=== PATIENT | male | born 1990 | race Caucasian/White ===

== ENCOUNTER 2017-02-15 08:42 | Inpatient (IN) | payer OTHER ==
[2017-02-15 09:06] VITALS: BMI 30.1
--- NOTE | 2017-02-15 11:12 | HP ---
COWS - Scale Resting Pulse: 0= [place] 80 or Below Sweatin= Chills/Flushing Restless Observation: 3= Extraneous Movement Pupil Size: 2= Moderately Dilated Bone or Joint Aches: 4=Acute Joint/Muscle Pain Runny Nose/ Eye Tearin= Nasal Congestion GI Upset > 30mins: 1= Stomach Cramp Tremor Observation: 1= Tremor [place], Not Seen Yawning Observation: 2= >3x During Session Anxiety or Irritability: 2=Irritable/Anxious Goose Flesh Skin: 0=Smooth Skin COWS Score: 17 Admission ROS S - HPI Chief Complaint: DETOX TX FOR HEROIN DEPENDENCE Allergies/Adverse Reactions: Allergies Allergy/AdvReac Type Severity Reaction Status Date / Time morphine Allergy Severe Swelling Verified 02/15/17 09:38 History of Present Illness: 26 Y/O MALE WITH A HX OF HEROIN DEPENDENCE SEEKING DETOX [place]. Exam Limitations: No Limitations - Ebola screening Have you traveled outside of the country in the last 21 days: No Have you had contact with anyone from an Ebola affected area: No Have you been sick,other than usual withdrawal symptoms: No Do you have a fever: No - Review of Systems Constitutional: No Symptoms Reported, Chills, Night Sweats, Changes in sleep ( TAKES AMBIEN) EENT: reports: Tearing, Nose Congestion, Dental Problems (WISDOM TOOTH EXTRACTION) Respiratory: reports: No Symptoms reported Cardiac: reports: Lightheadedness GI: reports: Constipated, Nausea, Poor Appetite, Vomiting, Abdominal cramping : reports: Dysuria Musculoskeletal: reports: Back Pain (HX KYPHOSIS), Muscle Pain Integumentary: reports: Bruising (MID-RIGHT PALM FROM WORK) Neuro: reports: Headache (HX MIGRAINES), Tremors, Unsteady Gait, Dizziness Endocrine: reports: No Symptoms Reported Hematology: reports: No Symptoms Reported Psychiatric: reports: Orientated x3, Anxious Other Systems: Reviewed and Negative Patient History - Patient Medical History Hx Anemia: No Hx Asthma: No Hx Chronic Obstructive Pulmonary Disease (COPD): No Hx Cancer: No Hx Cardiac Disorders: No Hx Congestive Heart Failure: No Hx Hypertension: Yes (WAS ON MED BUT RESOVLED; BP 156/97) Hx Hypercholesterolemia: No Hx Pacemaker: No HX Cerebrovascular Accident: No Hx Seizures: No Hx Dementia: No Hx Diabetes: No Hx Gastrointestinal Disorders: No Hx Liver Disease: No Hx Genitourinary Disorders: No Hx Sexually Transmitted Disorders: No Hx Renal Disease (ESRD): No Hx Thyroid Disease: No Hx Human Immunodeficiency Virus (HIV): No (NEGATIVE HX) Hx Hepatitis C: No Hx Depression: Yes (ON MED) Hx Suicide Attempt: No Hx Bipolar Disorder: No Hx Schizophrenia: No - Patient Surgical History Past Surgical History: Yes Hx Neurologic Surgery: Yes (craniotomy in 12/2011) Hx Cataract Extraction: No Hx Cardiac Surgery: No Hx Lung Surgery: No Hx Breast Surgery: No Hx Breast Biopsy: No Hx Abdominal Surgery: No Hx Appendectomy: No Hx Cholecystectomy: No Hx Genitourinary Surgery: No Hx Orthopedic Surgery: Yes (craineotomy 12/2011 metal plate placed) Anesthesia Reaction: No - PPD History Previous Implant?: Yes Documented Results: Negative w/proof Implanted On Prior [facility] Admission?: Yes Date: 03/15/16 Results: 0 PPD to be Administered?: Yes - Reproductive History Patient is a Female of Child Bearing Age (11 -55 yrs old): No (MALE) - Smoking Cessation Smoking history: Current every day smoker Have you smoked in the past 12 months: Yes Aproximately how many cigarettes per day: 20 Hx Chewing Tobacco Use: No Initiated information on smoking cessation: Yes 'Breaking Loose' booklet given: 02/15/17 - Substance & Tx. History Hx Alcohol Use: No (DENIES) Hx Substance Use: Yes (HEROIN) Substance Use Type: Heroin Hx Substance Use Treatment: Yes ([facility]-DETOX) - Substances Abused Heroin Route: Inhalation Frequency: Daily Amount used: 6-7 BAGS Age of first use: 24 Date of Last Use: 02/14/17 Family Disease History - Family Disease History Family Disease History: Diabetes: Father (OPIODS; ON METHADONE PRORAM), Sister ( OPIODS; ON SUBOXONE ), Other: Father, Mother (BIPOLAR ), Sister Admission Physical Exam BHS - Vital Signs Vital Signs: Vital Signs - 24 hr 02/15/17 09:03 Temperature 96.7 F L Pulse Rate 77 Respiratory 18 Rate Blood Pressure 156/97 - Physical General Appearance: Yes: Moderate Distress, Irritable, Anxious HEENTM: Yes: EOMI, Normocephalic, DOROTHEA, Pharynx Normal Respiratory: Yes: Chest Non-Tender, Lungs Clear, Normal Breath Sounds, No Respiratory Distress Neck: Yes: Supple, Trachea in good position Breast: Yes: Breast Exam Deferred Cardiology: Yes: Regular Rhythm, Regular Rate, S1, S2 Abdominal: Yes: Normal Bowel Sounds, Non Tender, Soft Genitourinary: Yes: Other (N/C) Back: Yes: Within Normal Limits Musculoskeletal: Yes: full range of Motion, Gait Steady Extremities: Yes: Normal Range of Motion, Non-Tender Neurological: Yes: can carrier II-XII NML intact, Fully Oriented, Alert, Motor Strength 5/5 Integumentary: Yes: Dry, Warm Lymphatic: Yes: Within Normal Limits - Diagnostic (1) Chronic back pain Current Visit: Yes Status: Chronic Qualifiers: Back pain location: low back pain Back pain laterality: unspecified (2) Hypertension Current Visit: Yes Status: Suspected Qualified Code(s): - (3) Nicotine dependence Current Visit: Yes Status: Chronic Qualifiers: Nicotine product type: cigarettes Substance use status: uncomplicated Qualified Code(s): F17.210 - Nicotine dependence, cigarettes, uncomplicated (4) Opioid dependence with withdrawal Current Visit: Yes Status: Chronic (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
[2017-02-15] MEDS ORDERED: MAGNESIUM CITRATE 300 ML BOTTLE PO PRN (11:29)
[2017-02-15] MEDS ORDERED: LOPERAMIDE HCL 2 MG CAPSULE PO PRN (11:29)
[2017-02-15] MEDS ORDERED: ACETAMINOPHEN 325 MG TABLET (FP) PO PRN (11:29)
[2017-02-15] MEDS ORDERED: MAGNESIUM HYDROX 2400MG/30ML ORAL SUSPENSION 30 ML CUP PO PRN (11:29)
[2017-02-15] MEDS ORDERED: P-EPHED 60MG/TRIPROLIDI 2.5MG TABLET PO PRN (11:29)
[2017-02-15] MEDS ORDERED: guaiFENesin/D-METHORPHAN HB 10 ML UNIT-DOSE CUPS PO PRN (11:29)
[2017-02-15] MEDS ORDERED: METHADONE HCL 10 MG TABLET (FOR DETOX USE ONLY) PO ONE ×2 (11:36→23:00)
[2017-02-15] MEDS: diazePAM 5 MG TABLET PO PRN ×3 (12:55→22:16)
[2017-02-15] MEDS: NICOTINE POLACRILEX 4 MG GUM BUC PRN ×2 (12:56→22:18)
[2017-02-15] MEDS: NICOTINE 21 MG/24 HOURS TOPICAL PATCH TD SCH (12:56)
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
[2017-02-15 18:11] LABS: URINE APPEARANCE CLEAR; URINE BILIRUBIN NEGATIVE (NEGATIVE); URINE BLOOD NEGATIVE (NEGATIVE); URINE COLOR YELLOW; URINE GLUCOSE (UA) NEGATIVE (NEGATIVE); URINE KETONE NEGATIVE (NEGATIVE); URINE LEUK ESTERASE NEGATIVE (NEGATIVE); URINE NITRITE NEGATIVE (NEGATIVE); URINE PROTEIN NEGATIVE (NEGATIVE); URINE UROBILINOGEN NEGATIVE E.U./dl (0.2-1.0)
[2017-02-15] MEDS: GABAPENTIN 300 MG CAPSULE (FP) PO SCH (22:14)
[2017-02-15] MEDS: THIAMINE HCL 100 MG TABLET (FP) PO SCH (22:14)
[2017-02-16] MEDS: diazePAM 5 MG TABLET PO PRN ×4 (05:34→20:16)
[2017-02-16] MEDS ORDERED: METHADONE HCL 10 MG TABLET (FOR DETOX USE ONLY) PO ONE (10:00)
--- NOTE | 2017-02-16 10:09 | PN ---
BHS COWS - Scale Resting Pulse: 0= [place] 80 or Below Sweatin=Flushed/Facial Moisture Restless Observation: 1= Difficult to Sit Still Pupil Size: 0= Normal to Room Light Bone or Joint Aches: 2= Severe Diffuse Aches Runny Nose/ Eye Tearin= Runny Nose/Eyes GI Upset > 30mins: 2= Nausea/Diarrhea Tremor Observation of Outstretched Hands: 2= Slight Tremor Visible Yawning Observation: 1= 1-2x During Session Anxiety or Irritability: 2=Irritable/Anxious Goose Flesh Skin: 0=Smooth Skin COWS Score: 14 BHS Progress Note (SOAP) Subjective: Sweating,interrupted sleep,anxiety,tremors,restless,body aches Objective: 02/16/17 10:07 Vital Signs - 8 hr 02/16/17 02/16/17 02/16/17 03:06 06:23 09:26 Temperature 96.7 F L 96.5 F L Pulse Rate 56 L 62 Respiratory 18 18 18 Rate Blood Pressure 130/88 124/82 Laboratory Tests 02/15/17 14:00 Urine Color Yellow Urine Appearance Clear Urine pH 5.0 Ur Specific [place] 1.027 Urine Protein Negative Urine Glucose (UA) Negative Urine Ketones Negative Urine Blood Negative Urine Nitrite Negative Urine Bilirubin Negative Urine Urobilinogen Negative Ur Leukocyte Esterase Negative labs noted Assessment: 02/16/17 10:08 Withdrawal sx. Plan: Continue detox
[2017-02-16 10:10] LABS: MCHC 32.9 g/dl (32.0-35.9); MEAN PLT VOLUME 9.9 fl (7.5-11.1); PLATELET COUNT 199 K/MM3 (134-434); RDW 14.4 % (11.9-15.9); WHITE BLOOD COUNT 10.6 K/mm3 (4.0-10.0)
[2017-02-16] MEDS: PRENATAL VITAMINS W/ FOLIC ACID TABLET (FP) PO SCH (10:16)
[2017-02-16] MEDS: NICOTINE 21 MG/24 HOURS TOPICAL PATCH TD SCH (10:17)
[2017-02-16] MEDS: GABAPENTIN 300 MG CAPSULE (FP) PO SCH ×2 (10:17→22:11)
[2017-02-16] MEDS: FLUoxetine HCL 20 MG CAPSULE (FP) PO SCH (10:17)
[2017-02-16] MEDS: IBUPROFEN 400 MG TABLET (FP) PO PRN (10:19)
[2017-02-16] MEDS: NICOTINE POLACRILEX 4 MG GUM BUC PRN ×2 (10:19→16:59)
[2017-02-16 10:51] LABS: ALBUMIN 4.4 g/dl (3.4-5.0); ANION GAP 10 (8-16); CALCIUM 9.7 mg/dL (8.5-10.1); CO2 30 mmol/L (21-32); COCKROFT - GAULT 206.24; CREATININE 0.9 mg/dL (0.7-1.3); GLUCOSE,RANDOM 80 mg/dL (74-106); SGOT/AST 26 U/L (15-37); SGPT/ALT 38 U/L (12-78)
[2017-02-16 10:53] LABS: ALK PHOS 73 U/L (45-117); BILIRUBIN,TOTAL 0.7 mg/dL (0.2-1.0); TOT PROT 8.1 g/dl (6.4-8.2)
[2017-02-16] MEDS: MAG HYDROX/AL HYDROX/SIMETH 30 ML UNIT-DOSE CUP PO PRN (13:38)
[2017-02-16] MEDS: MENTHOL/PHENOL 1 EACH UD MM PRN (15:17)
[2017-02-16] MEDS: THIAMINE HCL 100 MG TABLET (FP) PO SCH (22:11)
[2017-02-16] MEDS: diphenhydrAMINE HCL 50 MG CAPSULE PO PRN (22:12)
[2017-02-17] MEDS: diphenhydrAMINE HCL 50 MG CAPSULE PO PRN ×2 (00:50→22:13)
[2017-02-17] MEDS: diazePAM 5 MG TABLET PO PRN ×5 (00:50→20:31)
--- NOTE | 2017-02-17 08:29 | EKG ---
Test Reason : Blood Pressure : / mmHG Vent. Rate : 072 BPM Atrial Rate : 072 BPM P-R Int : 152 ms QRS Dur : 100 ms QT Int : 382 ms P-R-T Axes : 049 040 033 degrees QTc Int : 418 ms NORMAL SINUS RHYTHM NORMAL ECG WHEN COMPARED WITH ECG OF 30-APR-2014 19:20, NO SIGNIFICANT CHANGE WAS FOUND Confirmed by PALUINE MILLER MD ([id number]) on 02/17/2017 8:28:49 AM Referred By: Levon Nieves Confirmed By:PAULINE MILLER MD
[2017-02-17] MEDS ORDERED: METHADONE HCL 5 MG TABLET (FOR DETOX USE ONLY) PO ONE (10:00)
[2017-02-17] MEDS: GABAPENTIN 300 MG CAPSULE (FP) PO SCH ×2 (10:35→22:12)
[2017-02-17] MEDS: PRENATAL VITAMINS W/ FOLIC ACID TABLET (FP) PO SCH (10:35)
[2017-02-17] MEDS: NICOTINE 21 MG/24 HOURS TOPICAL PATCH TD SCH (10:35)
[2017-02-17] MEDS: FLUoxetine HCL 20 MG CAPSULE (FP) PO SCH (10:36)
[2017-02-17] MEDS: NICOTINE POLACRILEX 4 MG GUM BUC PRN ×3 (10:39→17:11)
[2017-02-17] MEDS: CYCLOBENZAPRINE HCL 10 MG TABLET (FP) PO PRN ×2 (12:20→20:32)
--- NOTE | 2017-02-17 13:19 | PN ---
BHS COWS - Scale Resting Pulse: 0= [place] 80 or Below Sweatin=Flushed/Facial Moisture Restless Observation: 1= Difficult to Sit Still Pupil Size: 0= Normal to Room Light Bone or Joint Aches: 2= Severe Diffuse Aches Runny Nose/ Eye Tearin= Runny Nose/Eyes GI Upset > 30mins: 1= Stomach Cramp Tremor Observation of Outstretched Hands: 2= Slight Tremor Visible Yawning Observation: 2= >3x During Session Anxiety or Irritability: 2=Irritable/Anxious Goose Flesh Skin: 0=Smooth Skin COWS Score: 14 S Progress Note (SOAP) Subjective: Body aches, Sweating, Interrupted sleep. Objective: PT. A & O X 3. 02/17/17 13:17 Vital Signs Temperature 97.1 F L 02/17/17 06:45 Pulse Rate 66 02/17/17 06:45 Respiratory Rate 18 02/17/17 06:45 Blood Pressure 132/90 02/17/17 06:45 O2 Sat by Pulse Oximetry (%) Laboratory Last Values WBC 10.6 K/mm3 (4.0-10.0) H D 02/16/17 06:00 RBC 5.09 M/mm3 (4.00-5.60) 02/16/17 06:00 Hgb 14.7 GM/dL (11.7-16.9) D 02/16/17 06:00 Hct 44.8 % (35.4-49) D 02/16/17 06:00 MCV 88.0 fl (80-96) 02/16/17 06:00 MCHC 32.9 g/dl (32.0-35.9) 02/16/17 06:00 RDW 14.4 % (11.9-15.9) 02/16/17 06:00 Plt Count 199 K/MM3 (134-434) D 02/16/17 06:00 MPV 9.9 fl (7.5-11.1) D 02/16/17 06:00 Sodium 141 mmol/L (136-145) 02/16/17 06:00 Potassium 5.1 mmol/L (3.5-5.1) D 02/16/17 06:00 Chloride 101 mmol/L (98-107) 02/16/17 06:00 Carbon Dioxide 30 mmol/L (21-32) 02/16/17 06:00 Anion Gap 10 (8-16) 02/16/17 06:00 BUN 12 mg/dL (7-18) 02/16/17 06:00 Creatinine 0.9 mg/dL (0.7-1.3) 02/16/17 06:00 Creat Clearance w eGFR > 60 (>60) 02/16/17 06:00 Random Glucose 80 mg/dL (74-106) 02/16/17 06:00 Calcium 9.7 mg/dL (8.5-10.1) 02/16/17 06:00 Total Bilirubin 0.7 mg/dL (0.2-1.0) 02/16/17 06:00 AST 26 U/L (15-37) D 02/16/17 06:00 ALT 38 U/L (12-78) 02/16/17 06:00 Alkaline Phosphatase 73 U/L (45-117) D 02/16/17 06:00 Total Protein 8.1 g/dl (6.4-8.2) 02/16/17 06:00 Albumin 4.4 g/dl (3.4-5.0) 02/16/17 06:00 Urine Color Yellow 02/15/17 14:00 Urine Appearance Clear 02/15/17 14:00 Urine pH 5.0 (5.0-8.0) 02/15/17 14:00 Ur Specific [place] 1.027 (1.001-1.035) 02/15/17 14:00 Urine Protein Negative (NEGATIVE) 02/15/17 14:00 Urine Glucose (UA) Negative (NEGATIVE) 02/15/17 14:00 Urine Ketones Negative (NEGATIVE) 02/15/17 14:00 Urine Blood Negative (NEGATIVE) 02/15/17 14:00 Urine Nitrite Negative (NEGATIVE) 02/15/17 14:00 Urine Bilirubin Negative (NEGATIVE) 02/15/17 14:00 Urine Urobilinogen Negative E.U./dl (0.2-1.0) 02/15/17 14:00 Ur Leukocyte Esterase Negative (NEGATIVE) 02/15/17 14:00 RPR Titer Nonreactive (NONREACTIVE) 02/16/17 06:00 LABS NOTED. Assessment: 02/17/17 13:18 WITHDRAWAL SYMPTOMS. Plan: CONTINUE DETOX. ADVISED PATIENT TO FOLLOW-UP WITH [facility] / REHAB MEDICAL PROVIDER AFTER DISCHARGE FROM DETOX [facility] GENERAL MEDICAL ASSESSMENT AND FOR ABNORMAL ADMISSION LAB VALUES.
[2017-02-17] MEDS: MAG HYDROX/AL HYDROX/SIMETH 30 ML UNIT-DOSE CUP PO PRN (15:06)
[2017-02-17] MEDS: hydrOXYzine PAMOATE 25 MG CAPSULE (FP) PO PRN (17:10)
[2017-02-17] MEDS: MENTHOL/PHENOL 1 EACH UD MM PRN (20:49)
[2017-02-17] MEDS: THIAMINE HCL 100 MG TABLET (FP) PO SCH (22:12)
[2017-02-17] MEDS: IBUPROFEN 400 MG TABLET (FP) PO PRN (22:21)
[2017-02-18] MEDS: diazePAM 5 MG TABLET PO PRN ×2 (05:53→10:26)
[2017-02-18] MEDS: CYCLOBENZAPRINE HCL 10 MG TABLET (FP) PO PRN ×3 (05:53→22:23)
[2017-02-18] MEDS ORDERED: METHADONE HCL 5 MG TABLET (FOR DETOX USE ONLY) PO ONE (10:00)
[2017-02-18] MEDS: FLUoxetine HCL 20 MG CAPSULE (FP) PO SCH (10:22)
[2017-02-18] MEDS: GABAPENTIN 300 MG CAPSULE (FP) PO SCH ×2 (10:22→22:22)
[2017-02-18] MEDS: NICOTINE 21 MG/24 HOURS TOPICAL PATCH TD SCH (10:22)
[2017-02-18] MEDS: PRENATAL VITAMINS W/ FOLIC ACID TABLET (FP) PO SCH (10:23)
[2017-02-18] MEDS: NICOTINE POLACRILEX 4 MG GUM BUC PRN (10:26)
--- NOTE | 2017-02-18 12:24 | PN ---
BHS Progress Note (SOAP) Subjective: Sweating,interrupted sleep,restless Objective: 02/18/17 12:23 Vital Signs - 8 hr 02/18/17 02/18/17 06:33 09:16 Temperature 98.1 F 96.8 F L Pulse Rate 65 72 Respiratory 18 18 Rate Blood Pressure 116/80 121/82 Laboratory Last Values WBC 10.6 K/mm3 (4.0-10.0) H D 02/16/17 06:00 RBC 5.09 M/mm3 (4.00-5.60) 02/16/17 06:00 Hgb 14.7 GM/dL (11.7-16.9) D 02/16/17 06:00 Hct 44.8 % (35.4-49) D 02/16/17 06:00 MCV 88.0 fl (80-96) 02/16/17 06:00 MCHC 32.9 g/dl (32.0-35.9) 02/16/17 06:00 RDW 14.4 % (11.9-15.9) 02/16/17 06:00 Plt Count 199 K/MM3 (134-434) D 02/16/17 06:00 MPV 9.9 fl (7.5-11.1) D 02/16/17 06:00 Sodium 141 mmol/L (136-145) 02/16/17 06:00 Potassium 5.1 mmol/L (3.5-5.1) D 02/16/17 06:00 Chloride 101 mmol/L (98-107) 02/16/17 06:00 Carbon Dioxide 30 mmol/L (21-32) 02/16/17 06:00 Anion Gap 10 (8-16) 02/16/17 06:00 BUN 12 mg/dL (7-18) 02/16/17 06:00 Creatinine 0.9 mg/dL (0.7-1.3) 02/16/17 06:00 Creat Clearance w eGFR > 60 (>60) 02/16/17 06:00 Random Glucose 80 mg/dL (74-106) 02/16/17 06:00 Calcium 9.7 mg/dL (8.5-10.1) 02/16/17 06:00 Total Bilirubin 0.7 mg/dL (0.2-1.0) 02/16/17 06:00 AST 26 U/L (15-37) D 02/16/17 06:00 ALT 38 U/L (12-78) 02/16/17 06:00 Alkaline Phosphatase 73 U/L (45-117) D 02/16/17 06:00 Total Protein 8.1 g/dl (6.4-8.2) 02/16/17 06:00 Albumin 4.4 g/dl (3.4-5.0) 02/16/17 06:00 Urine Color Yellow 02/15/17 14:00 Urine Appearance Clear 02/15/17 14:00 Urine pH 5.0 (5.0-8.0) 02/15/17 14:00 Ur Specific [place] 1.027 (1.001-1.035) 02/15/17 14:00 Urine Protein Negative (NEGATIVE) 02/15/17 14:00 Urine Glucose (UA) Negative (NEGATIVE) 02/15/17 14:00 Urine Ketones Negative (NEGATIVE) 02/15/17 14:00 Urine Blood Negative (NEGATIVE) 02/15/17 14:00 Urine Nitrite Negative (NEGATIVE) 02/15/17 14:00 Urine Bilirubin Negative (NEGATIVE) 02/15/17 14:00 Urine Urobilinogen Negative E.U./dl (0.2-1.0) 02/15/17 14:00 Ur Leukocyte Esterase Negative (NEGATIVE) 02/15/17 14:00 RPR Titer Nonreactive (NONREACTIVE) 02/16/17 06:00 labs noted Assessment: 02/18/17 12:24 Withdrawal sx. Plan: Continue detox
[2017-02-18] MEDS: hydrOXYzine PAMOATE 25 MG CAPSULE (FP) PO PRN ×2 (12:50→19:54)
[2017-02-18] MEDS: IBUPROFEN 400 MG TABLET (FP) PO PRN (15:36)
[2017-02-18] MEDS: MAG HYDROX/AL HYDROX/SIMETH 30 ML UNIT-DOSE CUP PO PRN (19:55)
[2017-02-18] MEDS: THIAMINE HCL 100 MG TABLET (FP) PO SCH (22:22)
[2017-02-18] MEDS: diphenhydrAMINE HCL 50 MG CAPSULE PO PRN (22:23)
[2017-02-19] MEDS ORDERED: METHADONE HCL 10 MG TABLET (FOR DETOX USE ONLY) PO ONE (10:00)
[2017-02-19] MEDS: FLUoxetine HCL 20 MG CAPSULE (FP) PO SCH (10:26)
[2017-02-19] MEDS: NICOTINE 21 MG/24 HOURS TOPICAL PATCH TD SCH (10:27)
[2017-02-19] MEDS: GABAPENTIN 300 MG CAPSULE (FP) PO SCH ×2 (10:27→22:15)
[2017-02-19] MEDS: PRENATAL VITAMINS W/ FOLIC ACID TABLET (FP) PO SCH (10:27)
[2017-02-19] MEDS: hydrOXYzine PAMOATE 25 MG CAPSULE (FP) PO PRN ×2 (10:27→15:02)
[2017-02-19] MEDS: NICOTINE POLACRILEX 4 MG GUM BUC PRN ×2 (10:29→13:32)
[2017-02-19] MEDS: CYCLOBENZAPRINE HCL 10 MG TABLET (FP) PO PRN ×2 (10:29→17:41)
--- NOTE | 2017-02-19 10:36 | PN ---
BHS Progress Note (SOAP) Subjective: ANXIETY,SWEATS, FATIGUE. Objective: 02/19/17 10:36 Vital Signs Temperature 97.7 F 02/19/17 09:17 Pulse Rate 92 H 02/19/17 09:17 Respiratory Rate 20 02/19/17 09:17 Blood Pressure 138/85 02/19/17 09:17 O2 Sat by Pulse Oximetry (%) Assessment: 02/19/17 10:36 WITHDRAWAL X Plan: CONTINUE DETOX
[2017-02-19] MEDS: IBUPROFEN 400 MG TABLET (FP) PO PRN (13:32)
[2017-02-19] MEDS: MAG HYDROX/AL HYDROX/SIMETH 30 ML UNIT-DOSE CUP PO PRN (18:48)
[2017-02-19] MEDS: diphenhydrAMINE HCL 50 MG CAPSULE PO PRN (22:15)
[2017-02-19] MEDS: THIAMINE HCL 100 MG TABLET (FP) PO SCH (22:15)
[2017-02-20] MEDS: CYCLOBENZAPRINE HCL 10 MG TABLET (FP) PO PRN (05:28)
[2017-02-20] MEDS ORDERED: METHADONE HCL 5 MG TABLET (FOR DETOX USE ONLY) PO ONE (06:00)
[2017-02-20 06:10] VITALS: BP 111/78; PULSE 75; TEMP 97.2
[2017-02-20] MEDS: NICOTINE POLACRILEX 4 MG GUM BUC PRN (07:44)
--- NOTE | 2017-02-20 13:50 | DS ---
[facility] Detox Discharge Summary Admission Date: 02/15/17 Discharge Date: 02/20/17 - History Present History: Opioid Dependence Additional Comments: ADVISED PATIENT TO FOLLOW-UP WITH [facility] / REHAB MEDICAL PROVIDER AFTER DISCHARGE FROM DETOX FOR GENERAL MEDICAL ASSESSMENT AND FOR ABNORMAL ADMISSION LAB VALUES. Pertinent Past History: HTN, Depression. - Physical Exam Results Vital Signs: Vital Signs Temperature 97.2 F L 02/20/17 06:00 Pulse Rate 75 02/20/17 06:00 Respiratory Rate 18 02/20/17 06:00 Blood Pressure 111/78 02/20/17 06:00 O2 Sat by Pulse Oximetry (%) Pertinent Admission Physical Exam Findings: WITHDRAWAL SYMPTOMS. Laboratory Last Values WBC 10.6 K/mm3 (4.0-10.0) H D 02/16/17 06:00 RBC 5.09 M/mm3 (4.00-5.60) 02/16/17 06:00 Hgb 14.7 GM/dL (11.7-16.9) D 02/16/17 06:00 Hct 44.8 % (35.4-49) D 02/16/17 06:00 MCV 88.0 fl (80-96) 02/16/17 06:00 MCHC 32.9 g/dl (32.0-35.9) 02/16/17 06:00 RDW 14.4 % (11.9-15.9) 02/16/17 06:00 Plt Count 199 K/MM3 (134-434) D 02/16/17 06:00 MPV 9.9 fl (7.5-11.1) D 02/16/17 06:00 Sodium 141 mmol/L (136-145) 02/16/17 06:00 Potassium 5.1 mmol/L (3.5-5.1) D 02/16/17 06:00 Chloride 101 mmol/L (98-107) 02/16/17 06:00 Carbon Dioxide 30 mmol/L (21-32) 02/16/17 06:00 Anion Gap 10 (8-16) 02/16/17 06:00 BUN 12 mg/dL (7-18) 02/16/17 06:00 Creatinine 0.9 mg/dL (0.7-1.3) 02/16/17 06:00 Creat Clearance w eGFR > 60 (>60) 02/16/17 06:00 Random Glucose 80 mg/dL (74-106) 02/16/17 06:00 Calcium 9.7 mg/dL (8.5-10.1) 02/16/17 06:00 Total Bilirubin 0.7 mg/dL (0.2-1.0) 02/16/17 06:00 AST 26 U/L (15-37) D 02/16/17 06:00 ALT 38 U/L (12-78) 02/16/17 06:00 Alkaline Phosphatase 73 U/L (45-117) D 02/16/17 06:00 Total Protein 8.1 g/dl (6.4-8.2) 02/16/17 06:00 Albumin 4.4 g/dl (3.4-5.0) 02/16/17 06:00 Urine Color Yellow 02/15/17 14:00 Urine Appearance Clear 02/15/17 14:00 Urine pH 5.0 (5.0-8.0) 02/15/17 14:00 Ur Specific [place] 1.027 (1.001-1.035) 02/15/17 14:00 Urine Protein Negative (NEGATIVE) 02/15/17 14:00 Urine Glucose (UA) Negative (NEGATIVE) 02/15/17 14:00 Urine Ketones Negative (NEGATIVE) 02/15/17 14:00 Urine Blood Negative (NEGATIVE) 02/15/17 14:00 Urine Nitrite Negative (NEGATIVE) 02/15/17 14:00 Urine Bilirubin Negative (NEGATIVE) 02/15/17 14:00 Urine Urobilinogen Negative E.U./dl (0.2-1.0) 02/15/17 14:00 Ur Leukocyte Esterase Negative (NEGATIVE) 02/15/17 14:00 RPR Titer Nonreactive (NONREACTIVE) 02/16/17 06:00 LABS NOTED. - Treatment Hospital Course: Detox Protocol Followed, Detoxed Safely, Responded well, Discharged Condition Good Patient has Accepted a Rehab Referral to: NO - PT. TO GO HOME NOW AND PURSUE REHAB ([facility]) IN A FEW DAYS. - Medication Discharge Medications: Ambulatory Orders Fluoxetine HCl [Prozac -] 20 mg PO DAILY #30 capsule 09/07/16 Aspirin/Acetaminophen/Caffeine [Excedrin Migraine Caplet] 1 each PO BID Gabapentin [Neurontin] 600 mg PO BID 02/15/17 - Diagnosis (1) Nicotine dependence Status: Chronic Qualifiers: Nicotine product type: cigarettes Substance use status: uncomplicated Qualified Code(s): F17.210 - Nicotine dependence, cigarettes, uncomplicated (2) Opioid dependence with withdrawal Status: Acute (3) ADHD (attention deficit hyperactivity disorder) Status: Chronic Qualifiers: Attention deficit-hyperactivity disorder type: unspecified Qualified Code(s): F90.9 - Attention-deficit hyperactivity disorder, unspecified type (4) Chronic back pain Status: Chronic Qualifiers: Back pain location: low back pain Back pain laterality: unspecified Sciatica presence: unspecified whether sciatica present Qualified Code( s): M54.5 - Low back pain; G89.29 - Other chronic pain (5) Scheuermann's kyphosis Status: Chronic (6) Hypertension Status: Suspected Qualifiers: Hypertension type: essential hypertension Qualified Code(s): I10 - Essential (primary) hypertension - AMA Did Patient Leave Against Medical Advice: No
== END 2017-02-20 08:54 | disposition home or self-care (01) | DRG 773 ==
LOC: YASAS 08:42 → Y3N 10:24
PROVIDERS: ADMIT Internal Medicine; ATTEND Internal Medicine
PROC: HZ2ZZZZ Detoxification Services for Substance Abuse Treatment (ICD-10-PCS; principal; 2017-02-20)
DX: F11.23 Opioid dependence with withdrawal (principal); F12.20 Cannabis dependence, uncomplicated; F17.210 Nicotine dependence, cigarettes, uncomplicated; F90.9 Attention-deficit hyperactivity disorder, unspecified type; F19.24 Other psychoactive substance dependence with psychoactive substance-induced mood disorder; F32.9 Major depressive disorder, single episode, unspecified; I10 Essential (primary) hypertension; M54.5 Low back pain; G89.29 Other chronic pain; M42.00 Juvenile osteochondrosis of spine, site unspecified
CPT/HCPCS: 36415; 80053; 81003; 85027; 86593; 93005; 93010

== ENCOUNTER 2023-01-23 14:10 | Emergency (ER) | payer OTHER ==
[2023-01-23 14:42] VITALS: BP 150/89; PULSE 73; RESP 18; TEMP 98.7; BMI 33.3
[2023-01-23 16:14] LABS: BASO % 0.7 % (0-2.0); EOS % 2.4 % (0-4.5); HEMOGLOBIN 13.6 GM/dL (11.7-16.9); LYMPH % 25.4 % (8-40); MCH 27.2 pg (25.7-33.7); MCHC 33.1 g/dl (32.0-35.9); MEAN CELL VOLUME 82.2 fl (80-96); MEAN PLT VOLUME 8.6 fl (7.5-11.1); MONO % 4.6 % (3.8-10.2); NEUT % 66.9 % (42.8-82.8); PLATELET COUNT 212 10^3/uL (134-434); RBC 4.99 M/mm3 (4.00-5.60); WHITE BLOOD COUNT 7.4 K/mm3 (4.0-10.0)
[2023-01-23 16:44] LABS: CALCIUM 9.6 mg/dL (8.5-10.1)
[2023-01-23 16:45] LABS: ALBUMIN 4.1 g/dl (3.4-5.0); BLOOD UREA NITROGEN 9.2 mg/dL (7-18)
[2023-01-23 16:48] LABS: CREATININE 0.7 mg/dL (0.55-1.3)
[2023-01-23 16:49] LABS: BILIRUBIN,TOTAL 0.6 mg/dL (0.2-1)
[2023-01-23 16:50] LABS: TOT PROT 7.6 g/dl (6.4-8.2)
== END 2023-01-23 18:30 | disposition home or self-care (01) ==
LOC: JER 14:10
DX: R00.2 Palpitations (principal); Z20.822 Contact with and (suspected) exposure to COVID-19
CPT/HCPCS: 0241U-QW; 36415; 71045-TC-FY; 80053; 84443; 84484; 85025; 93005; 93010; 99285-25